=== PATIENT | male | born 1960 | race Caucasian/White ===

== ENCOUNTER 2025-02-11 12:04 | Emergency (ER) | payer MEDICARE, SELFPAY ==
[2025-02-11] VITALS (32 sets, daily range): BP systolic 84–146; BP diastolic 57–85; PULSE 55–92; TEMP 36.7; O2SAT 94–100; BMI 24.1
--- NOTE | 2025-02-11 12:10 | ECG_ITS ---
[facility] Test Date: 2025-02-11 Pat Name: DAGO CRESPO Department: Room: - Gender: Male It Teacher: : 1960 Requested By: JULIAN ROWLEY Order Number: [id number] Reading MD: SARAH SKY M.D. Measurements Intervals Reliance Rate: 63 P: 54 NC: 174 QRS: -1 QRSD: 94 T: 74 QT: 388 QTc: 395 Interpretive Statements 1100 Sinus rhythm 4068 Nonspecific Twave abnormality 9130 borderline ECG Compared to ECG 03/03/2022 14:07:00 No significant changes Electronically Signed On 02-11-2025 18:25:54 EDT by SARAH SKY M.D.
--- OUTSIDE RECORDS SUMMARY | 2025-02-11 12:11 | XMS_ITS | Encounter Summary ---
Author Organization [facility] Address [address] [place] [address] Care Team Providers Care Frame Expander Name Role Phone Cassidy Mcclure MD Unavailable Cassidy Mcclure MD Primary Care Provider [phone] Jennifer Bermeo RN Unavailable [phone] Cathy Parr LPN Unavailable Encounter Details Date Type Department Care Team ([facility] st Contact Info) Description 09/11/2024 Abstract [facility] [place] [facility] 112 [facility] 110 [place] [id number] Cassidy Mcclure MD 112 [facility] 110 [place] [address] Social History Tobacco Use Types Packs/Day Years Used Date Smoking Tobacco: Former Cigarettes Q uit: 06/14/2018 Smokeless Tobacco: Never Alcohol Use Standard Drinks/Week Comments Not Currently 0 (1 standard drink = 0.6 oz pur e alcohol) B1300 Health Literacy Answer Date Recor ded How often do you need to hav e someone help you when you read instructions, pamphlets, or other written material from your doctor or pharmacy? Rarely 04/18/2024 Humiliation, Afraid, Rape, and Kick questionnair e Answer Date Recorded Within the last year, have y ou been afraid of your partner or ex-partner? No 04/18/2024 Within the last year, have y ou been humiliated or emotionally abused in other ways by your partner or ex-partner? No Within the last year, have y ou been kicked, hit, slapped, or otherwise physically hurt by your partner or ex-partner? No 04/18/2024 Within the last year, have y ou been raped or forced to have any kind of sexual activity by your partner or ex-partner? No 04/18/2024 Social Connection and Isolat ion Panel [NHANES] Answer Date Recorded In a typical week, how many times do you talk on the phone with family, friends, or neighbors? More than three times a week 03/29/2023 How often do you get togethe r with friends or relatives? More than three times a week 03/29/2023 How often do you attend chur ch or anabaptism services? Never 03/29/2023 Do you belong to any clubs o r organizations such as adventist groups, unions, fraternal or athletic groups, or school groups? No 03/29/2023 How often do you attend meet ings of the clubs or organizations you belong to? Never 03/29/2023 Are you , , di vorced, , never , or living with a partner? 03/29/2023 AUDIT-C Answer Date Recorded Q1: How often do you have a drink containing alcohol? Never 03/29/2023 Q2: How many drinks containi ng alcohol do you have on a typical day when you are drinking? Patient does not drink Q3: How often do you have si x or more drinks on one occasion? Never 03/29/2023 Overall Financial Resource Strain (CARDIA) Answe r Date Recorded How hard is it for you to pa y for the very basics like food, housing, medical care, and heating? Somewhat hard 03/29/2023 PHQ-2 Answer Date Recorded Patient Health Questionnaire-2 Score 0 09/10/2024 [facility] - Occupational Stress Questionnaire Answer Date Recorded Do you feel stress - tense, restless, nervous, or anxious, or unable to sleep at night because your mind is troubled all the time - these days? Not at all 03/29/2023 Exercise Vital Sign Answer Date Recorde d On average, how many days pe r week do you engage in moderate to strenuous exercise (like a brisk walk)? 7 days 03/29/2023 On average, how many minutes do you engage in exercise at this level? 60 min 03/29/2023 Hunger Vital Sign Answer Date Recorded Within the past 12 months, y ou worried that your food would run out before you got the money to buy more. Sometimes true Within the past 12 months, t he food you bought just didn't last and you didn't have money to get more. Sometimes true PRAPARE - Transportation Answer Date Re corded In the past 12 months, has l ack of transportation kept you from medical appointments or from getting medications? No 03/11 In the past 12 months, has l ack of transportation kept you from meetings, work, or from getting things needed for daily living? No 03/29/2023 Housing Stability Vital Sign Answer Steven e Recorded In the last 12 months, was t here a time when you were not able to pay the mortgage or rent on time? No 03/29/2023 In the last 12 months, how many places have you lived? 1 03/29/2023 In the last 12 months, was t here a time when you did not have a steady place to sleep or slept in a retirement (including now)? No 03/29/2023 Sex and Gender Information Value Date Recorded Sex Assigned at Not on file Legal Sex Male 6:48 PM EDT Gender Identity Not on file Sexual Orientation Not on file documented as of this encounter Plan of Treatment Upcoming Encounters Date Type Department Care Team (Late st Contact Info) Description 03/14/2025 1:00 PM EDT Office Visit [facility] [place] [facility] [address] [facility] 110 [place] [id number] Cassidy Mcclure MD [address] [facility] 110 [place] [address] 05/27/2025 1:00 PM EST Office Visit [facility] [place] [facility] [address] [facility] 110 [place] [phone] Cassidy Mcclure MD [address] [facility] 110 [place] [address] documented as of this encounter Visit Diagnoses Not on filedocumented in this encounter Additional Health Concerns Assessment Noted Time PHQ-9 Depression Total Score: 0 05/14/20 24 12:00 PM EDT documented as of this encounter Care Teams Frame Expander Relationship Specialty Start Date End Date Cassidy Mcclure MD [address] [facility] 110 [place] [address] PCP - Sb GALLARDO 07/11/21 Cassiyd Mcclure MD [address] [facility] 110 [place] [address] PCP - General Family Medicine 12/27/22 Jennifer Bermeo, RN [address] [place] [address] Clinical Advocate Family Medicine 08/17/24 09/28/24 Cathy Parr LPN [address] [facility] 110 [place] [address] 09/28/24 documented as of this encounter
--- OUTSIDE RECORDS SUMMARY | 2025-02-11 12:11 | XMS_ITS | Encounter Summary ---
Author Organization [facility] Address [address] [facility] [place] [address] Care Team Providers Care Lime Kiln Worker Name Role Phone Cassidy Mcclure MD Unavailable Cassidy Mcclure MD Primary Care Provider [phone] Jennifer Bermeo RN Unavailable [phone] Cathy Parr LPN Unavailable Encounter Details Date Type Department Care Team ([facility] st Contact Info) Description 11/24/2023 Abstract [facility] [place] [facility] 112 [facility] 110 [place] [phone] Cassidy Mcclure MD 112 [facility] 110 [place] [address] Social History Tobacco Use Types Packs/Day Years Used Date Smoking Tobacco: Former Cigarettes Q uit: 06/14/2018 Smokeless Tobacco: Never Alcohol Use Standard Drinks/Week Comments Not Currently 0 (1 standard drink = 0.6 oz pur e alcohol) Humiliation, Afraid, Rape, and Kick questionnair e Answer Date Recorded Within the last year, have y ou been afraid of your partner or ex-partner? No 03/29/2023 Within the last year, have y ou been humiliated or emotionally abused in other ways by your partner or ex-partner? No Within the last year, have y ou been kicked, hit, slapped, or otherwise physically hurt by your partner or ex-partner? No 03/29/2023 Within the last year, have y ou been raped or forced to have any kind of sexual activity by your partner or ex-partner? No 03/29/2023 Social Connection and Isolat ion Panel [NHANES] Answer Date Recorded In a typical week, how many times do you talk on the phone with family, friends, or neighbors? More than three times a week 03/29/2023 How often do you get togethe r with friends or relatives? More than three times a week 03/29/2023 How often do you attend chur ch or moravian services? Never 03/29/2023 Do you belong to any clubs o r organizations such as sabianism groups, unions, fraternal or athletic groups, or [...] Date Recorded Patient Health Questionnaire-2 Score 0 11/22/2023 [facility] - Occupational Stress [...] place to sleep or slept in a group home (including now)? No 03/29/2023 Sex and Gender Information Value Date Recorded Sex Assigned at Not on file Legal Sex Male 6:48 PM EDT Gender Identity Not on file Sexual Orientation Not on file documented as of this encounter Plan of Treatment Upcoming Encounters Date Type Department Care Team (Late st Contact Info) Description 03/14/2025 1:00 PM EDT Office Visit [facility] [place] [facility] [address] [facility] [place] [address] [place] [phone] Cassidy Mcclure MD [address] [facility] [address] [place] [address] 05/27/2025 1:00 PM EST Office Visit [facility] [place] [facility] [address] [place] [address] [place] [address] Cassidy Mcclure MD [address] [place] [address] [place] [address] documented as of this encounter Visit Diagnoses Not on filedocumented in this encounter Additional Health Concerns Assessment Noted Time PHQ-9 Depression Total Score: 0 11/22/19 24 12:00 PM EDT documented as of this encounter Care Teams Lime Kiln Worker Relationship Specialty Start Date End Date Cassidy Mcclure MD [address] [place] [address] [place] [address] PCP - Sb GALLARDO 07/11/21 Cassidy Mcclure MD [address] [place] 110 [place], [place] [phone] PCP - General Family Medicine 12/27/22 Jennifer Bermeo, MARILYN [address] [place] [address] Clinical Advocate Family Medicine 08/17/24 09/28/24 Cathy Parr LPN [address] [place] [address] [place] [address] 09/28/24 documented as of this encounter
--- OUTSIDE RECORDS SUMMARY | 2025-02-11 12:11 | XMS_ITS | Encounter Summary ---
Author Organization [facility] Address [address] [place] [address] Care Team Providers Care Instrument Repair Technician Name Role Phone Cassidy Mcclure MD Unavailable Cassidy Mcclure MD Primary Care Provider [phone] Jennifer Bermeo RN Unavailable [phone] Cathy Parr LPN Unavailable Encounter Details Date Type Department Care Team (Late st Contact Info) Description 01/25/2024 Clinisync Result Encounter [facility] External Department Unsolicited Provider, Generic External Data Social History Tobacco Use Types Packs/Day Years [...] often do you attend chur ch or restorationism services? Never 03/29/2023 Do you belong to any clubs o r organizations such as holiness groups, unions, fraternal or athletic groups, or [...] Recorded Patient Health Questionnaire-2 Score 0 11/22/2023 [facility] - Occupational Stress Questionnaire Answer Date Recorded [...] Visit [facility] [place] [facility] [address] [facility] 110 [place] [address] Cassidy Mcclure MD [address] [place] [address] [place] [address] 05/27/2025 1:00 PM EST Office Visit [facility] [place] [facility] [address] [place] [address] [place] [address] Cassidy Mcclure MD [address] [facility] 110 [place] [address] documented as of this encounter Procedures Procedure Name Priority Date/Time Associated Diagnosis Comments CT CHEST W IV CONTRAST 01/25/2024 10:47 AM EDT documented in this encounter Results * CT chest w IV contrast (01/25/2024 10:47 AM EDT) Anatomical Region Laterality Modality Body, Chest Computed Tomogra phy 01/25/2024 10:4 7 AM EDT Narrative 01/26/2024 8:55 AM EDT * * *Final Report* * * DATE OF EXAM: Jan 25 2024 10:47AM [facility] 0539 - CT CHEST W IVCON / PROCEDURE REASON: Malignant neoplasm of unspecified part of unspecified bronchus or lung (HCC) * * * * Physician Interpretation * * * * RESULT: EXAMINATION: CHEST CT WITH CONTRAST CLINICAL HISTORY: Malignant neoplasm of unspecified part of unspecified bronchus or lung (HCC) Technique: Spiral CT acquisition of the chest from the thoracic inlet to the upper abdomen following IV contrast. MQ: CTCWR_5 Contrast: 50 mL Omnip[address] Dose-Length Product: 262 mGy*cm CT Dose Reduction Employed: Automated exposure control (AEC) Comparison: 07/20/2023 RESULT: Lines, tubes, and devices: None. Lung parenchyma and airways: Trachea and central airways are patent. Unchanged radiation fibrosis and treated left upper lobe mass. Morphology and appears unchanged since prior. No new suspicious appearing pulmonary nodules. Scattered calcified granulomas. Pleural space: No pleural effusion or pneumothorax. Lower neck, lymph nodes, and mediastinum: No axillary, supraclavicular, mediastinal or hilar lymphadenopathy by CT size criteria. Heart, pericardium, and thoracic vessels: The heart is normal in size. No pericardial effusion. The thoracic aorta and main pulmonary artery are normal in caliber. Atherosclerotic calcifications of the thoracic aorta and coronary arteries. Bones/Soft Tissues: Sebaceous cyst in the posterior right chest wall. Degenerative changes in thoracic spine. No aggressive osseous lesions. Upper abdomen: Unchanged 7 mm hypervascular structure in segment 6 likely benign. Vegetable Worker (topogram) images: Unremarkable. IMPRESSION: Unchanged appearance of the chest since 07/20/2023. No developing metastatic disease in the chest. Transcribe Date/Time: Jan 26 2024 8:45A Dictated by: JUANY ABDUL MD This examination was interpreted and the report reviewed and electronically signed by: JUANY ABDUL MD on Jan 26 2024 8:53AM EST Thank you for allowing us to participate in the care of your patient. Should there be any questions regarding this interpretation, please call [phone]. If you are unable to reach us at the number above, please feel free to contact [facility] at [phone]. [id number]^[email or web address]^ACN Procedure Note Radiology, Radiologist, - 01/26/2024 * * *Final Report* * * DATE OF EXAM: Jan 25 2024 10:47AM [facility] 0539 - CT CHEST W IVCON / PROCEDURE REASON: Malignant neoplasm of unspecified part of unspecified bronchus or lung (HCC) * * * * Physician Interpretation * * * * RESULT: EXAMINATION: CHEST CT WITH CONTRAST CLINICAL HISTORY: Malignant neoplasm of unspecified part of unspecified bronchus or lung (HCC) Technique: Spiral CT acquisition of the chest from the thoracic inlet to the upper abdomen following IV contrast. MQ: CTCWR_5 Contrast: 50 mL Omnipaque [address] Dose-Length Product: 262 mGy*cm CT Dose Reduction Employed: Automated exposure control (AEC) Comparison: 07/20/2023 RESULT: Lines, tubes, and devices: None. Lung parenchyma and airways: Trachea and central airways are patent. Unchanged radiation fibrosis and treated left upper lobe mass. Morphology and appears unchanged since prior. No new suspicious appearing pulmonary nodules. Scattered calcified granulomas. Pleural space: No pleural effusion or pneumothorax. Lower neck, lymph nodes, and mediastinum: No axillary, supraclavicular, mediastinal or hilar lymphadenopathy by CT size criteria. Heart, pericardium, and thoracic vessels: The heart is normal in size. No pericardial effusion. The thoracic aorta and main pulmonary artery are normal in caliber. Atherosclerotic calcifications of the thoracic aorta and coronary arteries. Bones/Soft Tissues: Sebaceous cyst in the posterior right chest wall. Degenerative changes in thoracic spine. No aggressive osseous lesions. Upper abdomen: Unchanged 7 mm hypervascular structure in segment 6 likely benign. Vegetable Worker (topogram) images: Unremarkable. IMPRESSION: Unchanged appearance of the chest since 07/20/2023. No developing metastatic disease in the chest. Transcribe Date/Time: Jan 26 2024 8:45A Dictated by: JUANY ABDUL MD This examination was interpreted and the report reviewed and electronically signed by: JUANY ABDUL MD on Jan 26 2024 8:53AM EST Thank you for allowing us to participate in the care of your patient. Should there be any questions regarding this interpretation, please call [phone]. If you are unable to reach us at the number above, please feel free to contact [facility] at [phone]. [id number]^[email or web address]^ACN us Generic External Data Provider IMG CT PROCEDURES Final Result documented in this encounter Visit Diagnoses Not on filedocumented in this encounter Additional Health Concerns Assessment Noted Time PHQ-9 Depression Total Score: 0 11/22/19 24 12:00 PM EDT documented as of this encounter Care Teams Instrument Repair Technician Relationship Specialty Start Date End Date Cassidy Mcclure MD [address] [facility] 110 [place] [address] PCP - Sb GALLARDO 07/11/21 Cassidy Mcclure MD [address] [facility] 110 [place] [address] PCP - General Family Medicine 12/27/22 Jennifer Bermeo, MARILYN [address] [place] [address] Clinical Advocate Family Medicine 08/17/24 09/28/24 Cathy Parr LPN [address] [facility] 110 [place] [address] 09/28/24 documented as of this encounter
--- OUTSIDE RECORDS SUMMARY | 2025-02-11 12:11 | XMS_ITS | Encounter Summary ---
Author Organization [facility] Address [address] [facility] [place] [address] Care Team Providers Care Senior Quality Assurance Engineer Name Role Phone Cassidy Mcclure MD Unavailable Cassidy Mccluer MD Primary Care Provider [phone] Jennifer Bermeo RN Unavailable [phone] Cathy Parr LPN Unavailable Encounter Details Date Type Department Care Team ([facility] st Contact Info) Description 08/03/2023 Abstract [facility] [place] [facility] 112 [facility] 110 [place] [phone] Cassidy Mcclure MD 112 [facility] 110 [place] [address] Social History Tobacco Use Types Packs/Day Years [...] often do you attend chur ch or samaritan services? Never 03/29/2023 Do you belong to any clubs o r organizations such as lutheran groups, unions, fraternal or athletic groups, or [...] medical care, and heating? Somewhat hard 03/29/2023 [facility] - Occupational Stress [...] place to sleep or slept in a correction (including now)? No 03/29/2023 Sex and Gender Information Value Date Recorded Sex Assigned at Not on file Legal Sex Male 6:48 PM EDT Gender Identity Not on file Sexual Orientation Not on file documented as of this encounter Plan of Treatment Upcoming Encounters Date Type Department Care Team (Late st Contact Info) Description 03/14/2025 1:00 PM EDT [facility] [address] [place] [address] [place] [address] Cassidy Mcclure MD [address] [place] [address] [place] [address] 05/27/2025 1:00 PM EST Office Visit [facility] [place] [facility] [address] [place] [address] [place] [address] Cassidy Mcclure MD [address] [place] [address] [place] [address] documented as of this encounter Visit Diagnoses Not on filedocumented in this encounter Care Teams Senior Quality Assurance Engineer Relationship Specialty Start Date End Date Cassidy Mcclure MD [address] [place] [address] [place] [address] PCP - Sb GALLARDO 07/11/21 Cassidy Mcclure MD [address] [place] [address] [place] [address] PCP - General Family Medicine 12/27/22 Jennifer Bermeo, MARILYN [address] [place] [address] Clinical Advocate Family Medicine 08/17/24 09/28/24 Cathy Parr LPN [address] [facility] 110 [place] [address] 09/28/24 documented as of this encounter
--- OUTSIDE RECORDS SUMMARY | 2025-02-11 12:11 | XMS_ITS | Encounter Summary ---
Author Organization [facility] Address [address] [facility] [place] [address] Care Team Providers Care Theatre Professor Name Role Phone Cassidy Mcclure MD Unavailable Cassidy Mcclure MD Primary Care Provider Jennifer Bermeo RN Unavailable [phone] Cathy Parr LPN Unavailable Encounter Details Date Type Department Care Team (Late Contact Info) Description 01/13/2023 Clinisync Result Encounter [facility] External Department Unsolicited aCssidy Mcclure MD [address] [facility] 110 [place] [address] Social History Tobacco Use Types Packs/Day Years Used Date Smoking Tobacco: Former Cigarettes Q uit: 06/14/2018 Smokeless Tobacco: Never Sex and Gender Information Value Date Recorded Sex Assigned at Not on file Legal Sex Male 6:48 PM EDT Gender Identity Not on file Sexual Orientation Not on file documented as of this encounter Plan of Treatment Upcoming Encounters Date Type Department Care Team ([facility] Contact Info) Description 03/14/2025 1:00 PM EDT Office Visit [facility] [place] [facility] [address] [facility] 110 [place] [id number] Cassidy Mcclure MD [address] [facility] 110 [place] [address] 05/27/2025 1:00 PM EST Office Visit [facility] [place] [facility] [address] [facility] 110 [place] [phone] Cassidy Mcclure MD [address] [facility] 110 [place], [place] [id number] documented as of this encounter Procedures Procedure Name Priority Date/Time Associated Diagnosis Comments CT CHEST W IV CONTRAST 01/13/2023 11:17 AM EDT documented in this encounter Results * CT chest w IV contrast (01/13/2023 11:17 AM EDT) Anatomical Region Laterality Modality Body, Chest Computed Tomogra phy 01/13/2023 11:1 7 AM EDT Narrative 01/13/2023 11:45 AM EDT * * *Final Report* * * DATE OF EXAM: Jan 13 2023 11:17AM [facility] 0539 - CT CHEST W IVCON / PROCEDURE REASON: Malignant neoplasm of unspecified part of unspecified bronchus or lung (HCC) * * * * Physician Interpretation * * * * RESULT: EXAMINATION: CHEST CT WITH CONTRAST CLINICAL HISTORY: Lung carcinoma Technique: Spiral CT acquisition of the chest from the thoracic inlet to the upper abdomen following IV contrast. MQ: CTCW_6 Contrast: 50 mL Omnipaque [address] Radiation dose: Integrated Dose-length product (DLP) for this visit = 237 mGy*cm CT Dose Reduction Employed: Automated exposure control (AEC) Comparison: CT chest 09/01/2022 RESULT: Limitations: None. Lines, tubes, and devices: None. Lung parenchyma , airways, and pleural space: Consolidative opacities within the left upper lobe and to a lesser degree left lower lobe extending to the perihilar region are again appreciated, unchanged, likely on the basis of prior radiation therapy. No new consolidative process or pleural effusion. The trachea and major airways appear patent. Minimal biapical pleural scarring is appreciated. Mild centrilobular emphysematous changes are again noted. Scattered calcified granulomata are appreciated. Punctate, less than 3 mm left upper lobe noncalcified nodule, image 29, series 4 is not clearly identified on the prior study. Lower neck, lymph nodes, and mediastinum: The visualized thyroid gland is stable. No substantial supraclavicular or axillary lymphadenopathy is identified. Scattered subcentimeter mediastinal lymph nodes are again appreciated, stable. Mild soft tissue prominence at the right hilum measuring 1.3 x 1.1 cm, stable. Soft tissue prominence at the left hilum, contiguous with left perihilar opacities, unchanged. Heart, pericardium, and thoracic vessels: The thoracic aorta is normal in caliber. No substantial pericardial effusion is appreciated. Coronary artery calcification is identified. Bones/Soft Tissues: Degenerative change involving the thoracic spine. No osseous destructive process. Upper Abdomen: Limited images through the upper abdomen are stable. Information Systems Security Developer (topogram) images: No additional findings. IMPRESSION: 1. Left perihilar consolidative opacities, stable from prior study of 09/01/2022, likely on the basis of prior radiation therapy. 2. Punctate, less than 3 mm left upper lobe nodule, not clearly identified on the prior study. Correlation with continued follow-up examinations is recommended. 3. Mild soft tissue prominence at the right hilum, unchanged. Transcribe Date/Time: Jan 13 2023 11:18A Dictated by: MARÍA ESCOBEDO MD This examination was interpreted and the report reviewed and electronically signed by: MARÍA ESCOBEDO MD on Jan 13 2023 11:43AM EST Thank you for allowing us to participate in the care of your patient. Should there be any questions regarding this interpretation, please call [phone]. If you are unable to reach us at the number above, please feel free to contact [facility] at [phone]. [id number]^[email or web address]^ACN Procedure Note Radiology, Radiologist, - 01/13/2023 * * *Final Report* * * DATE OF EXAM: Jan 13 2023 11:17AM [facility] 0539 - CT CHEST W IVCON / PROCEDURE REASON: Malignant neoplasm of unspecified part of unspecified bronchus or lung (HCC) * * * * Physician Interpretation * * * * RESULT: EXAMINATION: CHEST CT WITH CONTRAST CLINICAL HISTORY: Lung carcinoma Technique: Spiral CT acquisition of the chest from the thoracic inlet to the upper abdomen following IV contrast. MQ: CTCW_6 Contrast: 50 mL Omnipaque [address] Radiation dose: Integrated Dose-length product (DLP) for this visit = 237 mGy*cm CT Dose Reduction Employed: Automated exposure control (AEC) Comparison: CT chest 09/01/2022 RESULT: Limitations: None. Lines, tubes, and devices: None. Lung parenchyma , airways, and pleural space: Consolidative opacities within the left upper lobe and to a lesser degree left lower lobe extending to the perihilar region are again appreciated, unchanged, likely on the basis of prior radiation therapy. No new consolidative process or pleural effusion. The trachea and major airways appear patent. Minimal biapical pleural scarring is appreciated. Mild centrilobular emphysematous changes are again noted. Scattered calcified granulomata are appreciated. Punctate, less than 3 mm left upper lobe noncalcified nodule, image 29, series 4 is not clearly identified on the prior study. Lower neck, lymph nodes, and mediastinum: The visualized thyroid gland is stable. No substantial supraclavicular or axillary lymphadenopathy is identified. Scattered subcentimeter mediastinal lymph nodes are again appreciated, stable. Mild soft tissue prominence at the right hilum measuring 1.3 x 1.1 cm, stable. Soft tissue prominence at the left hilum, contiguous with left perihilar opacities, unchanged. Heart, pericardium, and thoracic vessels: The thoracic aorta is normal in caliber. No substantial pericardial effusion is appreciated. Coronary artery calcification is identified. Bones/Soft Tissues: Degenerative change involving the thoracic spine. No osseous destructive process. Upper Abdomen: Limited images through the upper abdomen are stable. Information Systems Security Developer (topogram) images: No additional findings. IMPRESSION: 1. Left perihilar consolidative opacities, stable from prior study of 09/01/2022, likely on the basis of prior radiation therapy. 2. Punctate, less than 3 mm left upper lobe nodule, not clearly identified on the prior study. Correlation with continued follow-up examinations is recommended. 3. Mild soft tissue prominence at the right hilum, unchanged. Transcribe Date/Time: Jan 13 2023 11:18A Dictated by: MARÍA ESCOBEDO MD This examination was interpreted and the report reviewed and electronically signed by: MARÍA ESCOBEDO MD on Jan 13 2023 11:43AM EST Thank you for allowing us to participate in the care of your patient. Should there be any questions regarding this interpretation, please call [phone]. If you are unable to reach us at the number above, please feel free to contact [facility] at [phone]. [id number]^[email or web address]^SI^ACN Cassidy Mcclure MD IMG CT PROCEDURES Final Result documented in this encounter Visit Diagnoses Not on filedocumented in this encounter Care Teams Theatre Professor Relationship Specialty Start Date End Date Cassidy Mcclure MD [address] [facility] 110 [place] [address] PCP - Sb GALLARDO 07/11/21 Cassidy Mcclure MD [address] [facility] 110 [place] [address] PCP - General Family Medicine 12/27/22 Jennifer Bermeo, MARILYN [address] [place] [address] Clinical Advocate Family Medicine 08/17/24 09/28/24 Cathy Parr LPN [address] [facility] 110 [place] [address] 09/28/24 documented as of this encounter
--- OUTSIDE RECORDS SUMMARY | 2025-02-11 12:11 | XMS_ITS | Encounter Summary ---
Author Organization [facility] Address [address] [facility] [place] [address] Care Team Providers Care Reference Librarian Name Role Phone Cassidy Mcclure MD Unavailable Cassidy Mcclure MD Primary Care Provider [phone] Jennifer Bermeo RN Unavailable [phone] Cathy Parr LPN Unavailable Encounter Details Date Type Department Care Team (Late st Contact Info) Description 02/02/2024 Abstract [facility] [place] [facility] 112 [facility] 110 [place] [phone] Cassidy Mcclure MD 112 [facility] 110 [place] [address] Social History Tobacco Use Types Packs/Day Years [...] often do you attend chur ch or spiritism services? Never 03/29/2023 Do you belong to any clubs o r organizations such as yarsanism groups, unions, fraternal or athletic groups, or [...] Recorded Patient Health Questionnaire-2 Score 0 11/22/2023 [facility] - Occupational [...] place to sleep or slept in a half-way (including now)? No 03/29/2023 Sex and Gender [...] [address] [facility] 110 [place] [phone] Cassidy Mcclure MD [address] [facility] 110 [place] [address] 05/27/2025 1:00 PM EST Office Visit [facility] [place] [facility] [address] [facility] [place] [address] [place] [address] Cassidy Mcclure MD [address] [facility] 110 [place] [address] documented as of this encounter Visit Diagnoses Not on filedocumented in this encounter Additional Health Concerns Assessment Noted Time PHQ-9 Depression Total Score: 0 11/22/19 24 12:00 PM EDT documented as of this encounter Care Teams Reference Librarian Relationship Specialty Start Date End Date Cassidy Mcclure MD [address] [facility] 110 [place] [address] PCP - Sb GALLARDO 07/11/21 Cassidy Mcclure MD [address] [place] [facility] 110 [place], [place] [address] PCP - General Family Medicine 12/27/22 Jennifer Bermeo, MARILYN [address] [place] [address] Clinical Advocate Family Medicine 08/17/24 09/28/24 Cathy Parr LPN [address] [place] [facility] 110 [place] [address] 09/28/24 documented as of this encounter
--- OUTSIDE RECORDS SUMMARY | 2025-02-11 12:11 | XMS_ITS | Encounter Summary ---
Author Organization [facility] Address [address] [place] [address] Care Team Providers Care Tester Printed Circuit Boards Name Role Phone Cassidy Mcclure MD Unavailable Cassidy Mcclure MD Primary Care Provider [phone] Jennifer Bermeo RN Unavailable [phone] Cathy Parr LPN Unavailable Encounter Details Date Type Department Care Team (Late st Contact Info) Description 07/25/2024 Clinisync Result Encounter [facility] External Department Unsolicited [...] often do you attend chur ch or zoroastrian services? Never 03/29/2023 Do you belong to any clubs o r organizations such as episcopalian groups, unions, fraternal or athletic groups, or [...] Recorded Patient Health Questionnaire-2 Score 0 11/22/2023 [facility] - Occupational Stress Questionnaire Answer Date [...] 1:00 PM EDT [facility] [place] [facility] [address] [place] [address] [place] [address] Cassidy Mcclure MD [address] [place] [facility] [address] [place] [address] 05/27/2025 1:00 PM EST Office Visit [facility] [place] [facility] [address] [place] [address] [place] [address] Cassidy Mcclure MD [address] [place] [address] [place] [address] documented as of this encounter Procedures Procedure Name Priority Date/Time Associated Diagnosis Comments CT CHEST W IV CONTRAST 07/25/2024 9:15 AM EST documented in this encounter Results * CT chest w IV contrast (07/25/2024 9:15 AM EST) Anatomical Region Laterality Modality Body, Chest Computed Tomogra phy 07/25/2024 9:15 AM EST Narrative 07/25/2024 10:44 AM EST * * *Final Report* * * DATE OF EXAM: Jul 25 2024 9:15AM [facility] 0539 - CT CHEST W IVCON / PROCEDURE REASON: Malignant neoplasm of unspecified part of unspecified bronchus or lung (HCC) * * * * Physician Interpretation * * * * RESULT: EXAMINATION: CHEST CT WITH CONTRAST CLINICAL HISTORY: Non-small cell lung cancer (NSCLC), monitor Technique: Spiral CT acquisition of the chest from the thoracic inlet to the upper abdomen following IV contrast. MQ: CTCW_6 Contrast: 50 mL Omnipaque [address] Dose-Length Product: 244 mGy*cm CT Dose Reduction Employed: Automated exposure control (AEC) Comparison: 01/25/24 RESULT: Limitations: None. Lines, tubes, and devices: None. Lung parenchyma and pleura: Consolidative opacities are noted throughout the left lung, most likely a combination of post radiation change and other infectious/inflammatory etiologies, stable. Mild emphysematous changes of the lungs. Calcified granulomas are noted. No new airspace opacities. No pleural effusion. Thoracic inlet, heart, and mediastinum: No mediastinal lymphadenopathy. The thoracic aorta and main pulmonary artery are normal in caliber. The cardiac chambers are normal in size. Atherosclerotic coronary artery calcifications are noted. No pericardial effusion or thickening. Bones and soft tissues: No new osseous abnormalities. Subcutaneous cystic focus in the right lower chest wall (3: 156) most likely a sebaceous cyst, stable. Upper abdomen: Left adrenal gland is incompletely visualized. No evidence of an adrenal mass and the visualized [id number]. Co Pilot (topogram) images: No additional findings. IMPRESSION: 1. No interval change since 01/25/24. 2. Left perihilar postradiation change, stable. Transcribe Date/Time: Jul 25 2024 10:29A Dictated by: BRITTANEY LEE MD This examination was interpreted and the report reviewed and electronically signed by: BRITTANEY LEE MD on Jul 25 2024 10:41AM EST Thank you for allowing us to participate in the care of your patient. Should there be any questions regarding this interpretation, please call [phone]. If you are unable to reach us at the number above, please feel free to contact [facility] at [phone]. [id number]^[email or web address]^ACN Procedure Note Radiology, Radiologist, - 07/25/2024 * * *Final Report* * * DATE OF EXAM: Jul 25 2024 9:15AM [facility] 0539 - CT CHEST W IVCON / PROCEDURE REASON: Malignant neoplasm of unspecified part of unspecified bronchus or lung (HCC) * * * * Physician Interpretation * * * * RESULT: EXAMINATION: CHEST CT WITH CONTRAST CLINICAL HISTORY: Non-small cell lung cancer (NSCLC), monitor Technique: Spiral CT acquisition of the chest from the thoracic inlet to the upper abdomen following IV contrast. MQ: CTCW_6 Contrast: 50 mL Omnipaque [address] Dose-Length Product: 244 mGy*cm CT Dose Reduction Employed: Automated exposure control (AEC) Comparison: 01/25/24 RESULT: Limitations: None. Lines, tubes, and devices: None. Lung parenchyma and pleura: Consolidative opacities are noted throughout the left lung, most likely a combination of post radiation change and other infectious/inflammatory etiologies, stable. Mild emphysematous changes of the lungs. Calcified granulomas are noted. No new airspace opacities. No pleural effusion. Thoracic inlet, heart, and mediastinum: No mediastinal lymphadenopathy. The thoracic aorta and main pulmonary artery are normal in caliber. The cardiac chambers are normal in size. Atherosclerotic coronary artery calcifications are noted. No pericardial effusion or thickening. Bones and soft tissues: No new osseous abnormalities. Subcutaneous cystic focus in the right lower chest wall (3: 156) most likely a sebaceous cyst, stable. Upper abdomen: Left adrenal gland is incompletely visualized. No evidence of an adrenal mass and the visualized [id number]. Co Pilot (topogram) images: No additional findings. IMPRESSION: 1. No interval change since 01/25/24. 2. Left perihilar postradiation change, stable. Transcribe Date/Time: Jul 25 2024 10:29A Dictated by: BRITTANEY LEE MD This examination was interpreted and the report reviewed and electronically signed by: BRITTANEY LEE MD on Jul 25 2024 10:41AM EST Thank you for allowing us to participate in the care of your patient. Should there be any questions regarding this interpretation, please call [phone]. If you are unable to reach us at the number above, please feel free to contact [facility] at [phone]. [id number]^[email or web address]^SI^ACN us Generic External Data Provider IMG CT PROCEDURES Final Result documented in this encounter Visit Diagnoses Not on filedocumented in this encounter Additional Health Concerns Assessment Noted Time PHQ-9 Depression Total Score: 0 11/22/19 24 12:00 PM EDT documented as of this encounter Care Teams Tester Printed Circuit Boards Relationship Specialty Start Date End Date Cassidy Mcclure MD [address] [facility] 110 [place] [address] PCP - Sb GALLARDO 07/11/21 Cassidy Mcclure MD [address] [facility] 110 [place] [address] PCP - General Family Medicine 12/27/22 Jennifer Bermeo, RN [address] [place] [address] Clinical Advocate Family Medicine 08/17/24 09/28/24 Cathy Parr LPN [address] [facility] 110 [place] [address] 09/28/24 documented as of this encounter
--- OUTSIDE RECORDS SUMMARY | 2025-02-11 12:11 | XMS_ITS ---
Author Organization [facility] Address [address] [place] [address] Care Team Providers Care Lead Process Engineer Name Role Phone Cassidy Mcclure MD Unavailable Cassidy Mcclure MD Primary Care Provider [phone] Cathy Parr LPN Unavailable Chronic Care Management (CCM) Status:Enrolled (Active) Start date:11/25/2022 Enrollment date:11/25/2022 Overview 04/28/23, 11:39 AM - Shanikatuesday, ROBIN- Patient gives verbal consent to be enrolled in CCM Program and understands there could be a bill for this service. Case Team Name Relationship Phone Cathy Parr LPN(Responsible Staff) [phone] Continued Care and Services Coordination
--- OUTSIDE RECORDS SUMMARY | 2025-02-11 12:11 | XMS_ITS | Encounter Summary ---
Author Organization [facility] Address [address] [facility] [place] [address] Care Team Providers Care Service Desk Manager Name Role Phone Cassidy Mcclure MD Unavailable Cassidy Mcclure MD Primary Care Provider [phone] Jennifer Bermeo RN Unavailable [phone] Cathy Parr LPN Unavailable Encounter Details Date Type Department Care Team ([facility] st Contact Info) Description 11/23/2023 Abstract [facility] [place] [facility] 112 [facility] 110 [place] [phone] Cassidy Mcclure MD 112 [facility] 110 [place] [address] Social History Tobacco Use Types Packs/Day Years [...] often do you attend chur ch or pentecostalism services? Never 03/29/2023 Do you belong to any clubs o r organizations such as anabaptist groups, unions, fraternal or athletic groups, or [...] Recorded Patient Health Questionnaire-2 Score 0 11/22/2023 [facility] - Occupational [...] [address] [facility] [address] [place] [phone] Cassidy Mcclure MD [address] [place] [facility] 110 [place] [address] 05/27/2025 1:00 PM EST Office Visit [facility] [place] [facility] [address] [facility] [address] [place] [address] Cassidy Mcclure MD [address] [place] [facility] 110 [place] [address] documented as of this encounter Visit Diagnoses Not on filedocumented in this encounter Additional Health Concerns Assessment Noted Time PHQ-9 Depression Total Score: 0 11/22/19 24 12:00 PM EDT documented as of this encounter Care Teams Service Desk Manager Relationship Specialty Start Date End Date Cassidy Mcclure MD [address] [place] [facility] 110 [place] [address] PCP - Sb GALLARDO 07/11/21 Cassidy Mcclure MD [address] [place] 110 [place], [place] [id number] PCP - General Family Medicine 12/27/22 Jennifer Bermeo, MARILYN [address] [place] [address] Clinical Advocate Family Medicine 08/17/24 09/28/24 Cathy Parr LPN [address] [facility] 110 [place] [address] 09/28/24 documented as of this encounter
--- OUTSIDE RECORDS SUMMARY | 2025-02-11 12:11 | XMS_ITS | Encounter Summary ---
Author Organization [facility] Address [address] [facility] [place] [address] Care Team Providers Care Health And Physical Education Professor Name Role Phone Cassidy Mcclure MD Unavailable Cassidy Mcclure MD Primary Care Provider Jennifer Bermeo RN Unavailable Cathy Parr LPN Unavailable Encounter Details Date Type Department Care Team (Late Contact Info) Description 01/21/2023 Abstract [facility] [place] [address] [facility] 110 [place] [address] Cassidy Mcclure MD [address] [place] [facility] 110 [place] [address] Social History Tobacco Use Types Packs/Day Years Used Date Smoking Tobacco: Former Cigarettes Q uit: 06/14/2018 Smokeless Tobacco: Never Alcohol Use Standard Drinks/Week Comments Not Currently 0 (1 standard drink = 0.6 oz pur e alcohol) Sex and Gender Information Value Date Recorded Sex Assigned at Not on file Legal Sex Male 6:48 PM EDT Gender Identity Not on file Sexual Orientation Not on file documented as of this encounter Plan of Treatment Upcoming Encounters Date Type Department Care Team (Late Contact Info) Description 03/14/2025 1:00 PM EDT Office Visit [facility] [place] [facility] [address] [facility] [facility] [address] [place] [phone] Cassidy Mcclure MD [address] [place] 110 [place] [address] 05/27/2025 1:00 PM EST Office Visit [facility] [place] [facility] [address] [facility] [address] [place] [address] Cassidy Mcclure MD [address] [facility] 110 [place] [address] documented as of this encounter Visit Diagnoses Not on filedocumented in this encounter Care Teams Health And Physical Education Professor Relationship Specialty Start Date End Date Cassidy Mcclure MD [address] [facility] 110 [place] [address] PCP - Sb GALLARDO 07/11/21 Cassidy Mcclure MD [address] [facility] 110 [place] [address] PCP - General Family Medicine 12/27/22 Jennifer Bermeo, RN [address] [place] [address] Clinical Advocate Family Medicine 08/17/24 09/28/24 Cathy Parr LPN [address] [facility] 110 [place] [address] 09/28/24 documented as of this encounter
--- OUTSIDE RECORDS SUMMARY | 2025-02-11 12:12 | XMS_ITS | Encounter Summary ---
Author Organization [facility] Address [address] [facility] [place] [address] Care Team Providers Care Geothermal Operations Manager Name Role Phone Cassidy Mcclure MD Unavailable Cassidy Mcclure MD Primary Care Provider [phone] Jennifer Bermeo RN Unavailable [phone] Cathy Parr LPN Unavailable Encounter Details Date Type Department Care Team (Late st Contact Info) Description 07/13/2023 Abstract [facility] [place] [facility] [address] [facility] 110 [place] [phone] Cassidy Mcclure MD 112 [facility] 110 [place] [address] Social History Tobacco Use Types Packs/Day Years [...] often do you attend chur ch or taoist services? Never 03/29/2023 Do you belong to any clubs o r organizations such as congregation groups, unions, fraternal or athletic groups, or [...] medical care, and heating? Somewhat hard 03/29/2023 [facility] - Occupational Stress [...] PM EDT [facility] [address] JOSE ALFREDO [address] [place] [address] Cassidy Mcclure MD [address] Jose Alfredo [address] [place] [address] 05/27/2025 1:00 PM EST Office Visit [facility] [place] [facility] [address] JOSE ALFREDO [address] [place] [address] Cassidy Mcclure MD [address] Jose Alfredo [address] [place] [address] documented as of this encounter Visit Diagnoses Not on filedocumented in this encounter Care Teams Geothermal Operations Manager Relationship Specialty Start Date End Date Cassidy Mcclure MD [address] Jose Alfredo [address] [place] [address] PCP - Sb GALLARDO 07/11/21 Cassidy Mcclure MD [address] Jose Alfredo [address] [place] [address] PCP - General Family Medicine 12/27/22 Jennifer Bermeo, MARILYN [address] [place] [address] Clinical Advocate Family Medicine 08/17/24 09/28/24 Cathy Parr LPN [address] [facility] 110 [place] [address] 09/28/24 documented as of this encounter
--- OUTSIDE RECORDS SUMMARY | 2025-02-11 12:12 | XMS_ITS | Clinical Summary ---
Author Organization [facility] Address [address] [place] [address] Care Team Providers Care Contract Forester Name Role Phone Cassidy Mcclure MD Unavailable Cassidy Mcclure MD Primary Care Provider Cathy Parr LPN Unavailable Allergies Active Allergy Reactions Criticality Noted Date Comments Trazodone 03/16/2018 Other Reaction(s): Other: See Comments, Unknown Headache Medications sildenafil (Viagra) 100 MG tablet Take 100 mg by mouth if needed for erectile dysfunctio n. Active levothyroxine (Synthroid, Levoxyl) 100 MCG tabletIndications:Hypo thyroidism, unspecified type TAKE 1 TABLET BY MOUTH ONCE A DAY 90 tablet 4 024 Active lisinopril 10 MG tabletIndications:Ruiz gn essential hypertension TAKE 1 TABLET BY MOUTH ONCE A DAY AT THE SAME TIME EACH DAY 100 tablet 3 024 Active rOPINIRole (Requip) 0.5 MG tabletIndications:Rest less legs TAKE 1 TABLET BY MOUTH IN THE MORNING, 1 TABLET AT NOON, 1 TABLET IN THE EVENING AND 1 TABLET BEFORE BEDTIME. 360 tablet 3 024 Active topiramate 50 MG tabletIndications:Cent rilobular emphysema (HCC) TAKE 1 TABLET BY MOUTH TWICE DAILY DIRECTED 200 tablet 4 025 Active Umeclidinium-Vilantero l (Anoro Ellipta) 62.5-25 MCG/ACT aerosol powderIndications:Muco purulent chronic bronchitis (HCC) Inhale 1 puff Daily 1 each 2 025 Active atorvastatin (Lipitor) 80 MG tabletIndications:Pure hypercholesterolemia Take 1 tablet (80 mg) by mouth 1 (one) time each day at the same time 90 tablet 3 025 2025 Active gabapentin (Neurontin) 400 MG capsuleIndications:Res tless legs Take 2 capsules (800 mg) by mouth in the morning and 2 capsules (800 mg) before bedtime. 360 capsule 3 Active omeprazole (PriLOSEC) [address] capsuleIndications:Gas troesophageal reflux disease, unspecified whether esophagitis present Take 1 capsule (40 mg) by mouth in the morning. Take before meals. 90 capsule 3 025 2025 Active celecoxib (CeleBREX) 200 MG capsuleIndications:Res tless legs,Neuralgia TAKE 1 CAPSULE BY MOUTH ONCE DAILY IN THE MORNING 90 capsule 1 Active folic acid (Folvite) 1 MG tabletIndications:Hype rtriglyceridemia TAKE 1 TABLET BY MOUTH ONCE DAILY DIRECTED 100 tablet 3 025 Active folic acid (Folvite) 1 MG tabletIndications:Hype rtriglyceridemia TAKE 1 TABLET BY MOUTH ONCE DAILY DIRECTED 100 tablet 4 024 2024 Discontinued atorvastatin (Lipitor) 80 MG tabletIndications:Pure hypercholesterolemia Take 1 tablet (80 mg) by mouth 1 (one) time each day at the same time 90 tablet 3 024 2024 Discontinued(R eorder) gabapentin (Neurontin) 400 MG capsuleIndications:Res tless legs Take 2 capsules (800 mg) by mouth in the morning and 2 capsules (800 mg) before bedtime. 360 capsule 3 024 2024 Discontinued(R eorder) omeprazole (PriLOSEC) [address] capsuleIndications:Gas troesophageal reflux disease, unspecified whether esophagitis present Take 1 capsule (40 mg) by mouth in the morning. Take before meals. 90 capsule 3 024 2024 Discontinued(R eorder) celecoxib (CeleBREX) 200 MG capsuleIndications:Res tless legs,Neuralgia TAKE 1 CAPSULE BY MOUTH ONCE DAILY IN THE MORNING 30 capsule 3 025 2024 Discontinued(R eorder) Active Problems Problem Noted Date Diagnosed Date Obesity, unspecified 09/10/2024 Pulmonary fibrosis, unspecified 09/10/2024 Assessment & Plan (09/10/2024 1:28 PM EST): From Radiation, no breathing issues Allergies 03/06/2024 Assessment & Plan (03/06/2024 2:24 PM EDT): I discussed with patient that while on prednisone, do not take any NSAIDs like Ibuprofen, Naprosyn, Alleve or motrin. Watch for any side effects like abdominal pain and nausea. Take the prednisone with food or milk. Prednisone may increase appetite. While on prednisone, watch for any sugar elevations. Watch for bacterial infections: Fever, Cough, SOB, Sputum Centrilobular emphysema 09/01/2023 Assessment & Plan (09/10/2024 1:20 PM EST): No breathing issues Secondhand smoke exposure 09/01/2023 History of tobacco use 09/01/2023 Malignant neoplasm of upper lobe, left bronchus or lung 09/01/2023 Assessment & Plan (09/10/2024 1:21 PM EST): In remission Seasonal affective disorder 09/01/2023 Assessment & Plan (09/01/2023 2:23 PM EST): Exercise and sunshine ED (erectile dysfunction) of non-organic origin 12/14/2022 Abnormal tomography of chest 12/14/2022 Adjustment disorder 12/14/2022 Blindness of one eye 12/14/2022 Overview (11/22/2023): Right Eye Claudication 12/14/2022 Gastroesophageal reflux disease 12/14/2022 Hypertriglyceridemia 12/14/2022 Assessment & Plan (09/10/2024 1:20 PM EST): Cotinue current meds Hypothyroidism 12/14/2022 Assessment & Plan (11/22/2024 2:04 PM EDT): This is a chronic medical condition that is stable since last assessment. No changes in treatment are suggested at this time. Continue Current meds. Assessment & Plan (09/10/2024 1:20 PM EST): This is a chronic medical condition that is stable since last assessment. No changes in treatment are suggested at this time. Continue Current meds. 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 No changes in treatment are suggested at this time. Continue Current meds. Malignant neoplasm of unspec ified part of left bronchus or lung 12/14/2022 Pure hypercholesterolemia 12/14/2022 Assessment & Plan (11/22/2024 2:03 PM EDT): This is a chronic medical condition that is stable since last assessment. No changes in treatment are suggested at this time. Continue Current meds. Restless legs 12/14/2022 Assessment & Plan (09/10/2024 1:19 PM EST): This is a chronic medical condition that is stable since last assessment. No changes in treatment are suggested at this time. Continue Current meds. Seasonal allergic rhinitis due to pollen 023 COPD (chronic obstructive pulmonary disease) Assessment & Plan (09/10/2024 1:19 PM EST): Today we discussed the possible complications of COPD, including increased risk of respiratory failure, hospitalization and . Your goal for your COPD management are maintain a healthy weight with a BMI of less than 26 and prevent future hospitalizations by using your medications as prescribed and avoiding environments with smoke exposure. We are working together to achieve these goals with the following plans increase activity levels, compliance of medications and a healthier diet. You have been given education handouts and a summary of your care plan. 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 Overview (09/01/2023): 08/02 seen by cta 07/29 from osh, 2x2.5mm at junction of r a1 with acom -ICA-ECA bypass 08/07/13 Alcohol abuse 12/08/2011 Overview (09/01/2023): Thiamine folate- IV ceased today and multivitamin, pt will continue on vitamins at home -he does not have any withdrawal symptoms today -continue to encourage no drinking when going home and that he cannot take Plavix while drinking because of a concern of falling and having a head trauma Benign essential hypertension 08/09/2011 Assessment & Plan (11/22/2024 2:03 PM EDT): Our specific goals, for your hypertension, is to keep your blood pressure less than 140/90, and the importance of weight control. We made recommendations on how to control your blood pressure, and minimize your risk of these copmplications. We also discussed your current barriers to a healthy living and importance of healthy diet and exercise. Prior to your visit today we have reviewed your chart and formed a plan to assist with providing you the best possible care. We reviewed the possible complications of hypertension including, stroke, heart failure and kidney impairment. In addition, we discussed your medications, the importance of taking them as prescribed. DASH diet handouts Assessment & Plan (09/01/2023 2:18 PM EST): Our specific goals, for your hypertension, is to keep your blood pressure less than 140/90, and the importance of weight control. We made recommendations on how to control your blood pressure, and minimize your risk of these copmplications. We also discussed your current barriers to a healthy living and importance of healthy diet and exercise. Prior to your visit today we have reviewed your chart and formed a plan to assist with providing you the best possible care. We reviewed the possible complications of hypertension including, stroke, heart failure and kidney impairment. In addition, we discussed your medications, the importance of taking them as prescribed. DASH diet handouts Assessment & Plan (02/28/2023 1:13 PM EDT): Our specific goals, for your hypertension, is to keep your blood pressure less than 140/90, and the importance of weight control. We made recommendations on how to control your blood pressure, and minimize your risk of these copmplications. We also discussed your current barriers to a healthy living and importance of healthy diet and exercise. Prior to your visit today we have reviewed your chart and formed a plan to assist with providing you the best possible care. We reviewed the possible complications of hypertension including, stroke, heart failure and kidney impairment. In addition, we discussed your medications, the importance of taking them as prescribed. DASH diet handouts Peripheral vascular disease, unspecified 012 Assessment & Plan (09/01/2023 2:20 PM EST): Had CVA Takes an aspirin and atorvastatin Resolved Problems Problem Noted Date Diagnosed Date Resolved Date Acute on chronic alteration in mental status 3 11/22/2023 Lung cancer 12/14/2022 11/22/2023 Assessment & Plan (09/01/2023 2:19 PM EST): Had follow up in July Still in remission Malignant neoplasm of hilus of lung 12/14/2022 11/22/2023 Assessment & Plan (02/28/2023 1:13 PM EDT): F/U with hem Onc Lung mass 03/05/2022 11/22/2023 Wheezing 03/05/2022 11/22/2023 Tobacco abuse 09/25/2013 11/22/2023 Allergic rhinitis 06/08/2011 11/22/2023 Encounters Date Type Department Care Team Description 01/30/2025 Refill [facility] [address] [facility] 110 [place] [address] Cassidy Mcclure MD Hypertriglyceridemia 01/24/2025 Patient Outreach [facility] [place] [address] Cathy ParrROBIN 01/23/2025 Refill [facility] [address] [facility] 110 [place] [address] Katherine Del Cid LPN Restless legs; Neuralgia 01/15/2025 Refill [facility] [address] [facility] 110 [place] [address] Katherine Del Cid LPN Pure hypercholesterolemia ; Restless legs; Gastroesophageal reflux disease, unspecified whether esophagitis present 11/28/2024 Telephone [facility] [address] [facility] 110 [place] [address] Cassidy Mcclure MD 11/22/2024 2:00 PM EDT Office Visit [facility] [address] [facility] 110 [place] [address] Cassidy Mcclure MD Pure hypercholesterolemia (Primary Dx); Benign essential hypertension ; Acquired hypothyroidism ; Mucopurulent chronic bronchitis (HCC) 11/22/2024 Travel from Last 3 Months Immunizations Immunization Administration Dates Next Due Influenza, High-dose Seasona l, Quadrivalent, Preservative Free 04/07/2018 Influenza, Unspecified 08/04/2013 Influenza, injectable, quadr ivalent, preservative free 04/13/2020,04/21/2019,03/31/2018,05/04,07/08/2015 Influenza, recombinant, quad rivalent, injectable, preservative free 04/27/2022,04/25/2021 Influenza, seasonal, injectable 06/28/2023 Influenza, seasonal, injecta ble, preservative free 06/28/2017 Pneumococcal Polysaccharide PPSV23 08/03/2013 Family History Medical History Relation Name Comments Cancer Father Relation Name Status Comments Father Mother Social History Tobacco Use Types Packs/Day Years Used Date Smoking Tobacco: Former Cigarettes Q uit: 06/14/2018 Smokeless Tobacco: Never Tobacco Cessation:Counseling Given: Not Answered Alcohol Use Standard Drinks/Week Comments Not Currently [...] 03/29/2023 How often do you attend chur or amish services? Never 03/29/2023 Do you belong to any clubs o r organizations such as taoism groups, unions, fraternal or athletic groups, or [...] Date Recorded Patient Health Questionnaire-2 Score 0 11/22/2024 [facility] Occupat ional Health - Occupational [...] place to sleep or slept in a residential (including now)? No 03/29/2023 Sex and Gender Information Value Date Recorded Sex Assigned at Not on file Legal Sex Male 6:48 PM EDT Gender Identity Not on file Sexual Orientation Not on file Last Filed Vital Signs Vital Sign Reading Time Taken Comments Blood Pressure 112/72 11/22/2024 1:53 PM EDT Pulse 82 11/22/2024 1:53 PM EDT Temperature - - Respiratory Rate 18 11/22/2023 1:06 PM EDT Oxygen Saturation 94% 11/22/2024 1:53 PM EDT Inhaled Oxygen Concentration - - Weight 86.2 kg (190 lb) 11/22/2024 1:53 PM EDT Height 175.3 cm (5' 9 ) 11/22/2024 1:53 PM EDT Body Mass Index 28.06 11/22/2024 1:53 PM EDT Plan of Treatment Upcoming Encounters Date Type Department Care Team (Late st Contact Info) Description 03/14/2025 1:00 PM EDT Office Visit [facility] [place] [facility] [address] [facility] [address] [place] [address] Cassidy Mcclure MD [address] [facility] 110 [place] [address] 05/27/2025 1:00 PM EST Office Visit [facility] [place] [facility] [address] [facility] 110 [place] [address] Cassidy Mcclure MD [address] [facility] [address] [place] [address] Health Maintenance Due Date Last Done Comments CT Colonography 1958 FIT 1958 FOBT 1960 Sigmoidoscopy 1960 Pneumococcal Vaccine: 65+ Ye ars (2 of 2 - PCV) 08/03/2014 08/03/2013 FIT-DNA 11/01/2021 11/01/2018, 11/01/2018 Influenza Vaccine (#1) 2025 , 04/27/2022, 04/25/2021, Additional history exists Medicare Annual Wellness (AWV) 09/10/2025 09/10/2024 , 11/22/2023 Colonoscopy 04/04/2030 04/04/2020, 01/30/2019 Colorectal Cancer Screening 04/04/2030 Procedures Procedure Name Priority Date/Time Associated Diagnosis Comments COLONOSCOPY Routine 04/04/2020 12:00 PM EDT LAB COLOGUARD COLON CANCER SCREEN Routine 11/01/2018 from Last 3 Months or Most Recently Relevant to Health Maintenance Results * Colonoscopy (04/04/2020 12:00 PM EDT) Anatomical Region Laterality Modality Endoscopy 04/04/2020 12:0 0 PM EDT Narrative 04/04/2020 12:00 PM EDT PERFORMED AT [facility] LOCATION:[id number] See Scanned Doc. Procedure Note CONVERSION, GENERIC - 11/24/2022 PERFORMED AT [facility] LOCATION:[id number] See Scanned Doc. us Cassidy Mcclure MD ENDOSCOPY PROCEDURE ORDERABLES F inal Result * Cologuard?? colon cancer screening (11/01/2018) [facility] COLOGUARD RESULT REPORTABLE Negative Not Applicable [facility] Comment: A negative result indicates a low likelihood that a colorectal cancer (CRC) or an advanced adenoma (adenomatous polyps with more advanced pre-malignant features) is present. The chance that a person with a negative Cologuard test has a colorectal cancer is less than 1 in 1500 (negative predictive value >99.9%) or has an advanced adenoma is less than 5.3% (negative predictive value 94.7%). These data are based on a prospective cross-sectional screening study of 10,000 individuals at average risk for colorectal cancer who were screened with both Cologuard and colonoscopy. (Zena Odell al, N Engl J Med 2014;370(14):1962-0353) COLOGUARD RE-SCREENING RECOMMENDATION: Periodic routine colorectal cancer screening is an important part of preventive healthcare for asymptomatic persons at average risk for colorectal cancer. Following a negative Cologuard result, the [place] Cancer Society and U.S. Multi-Society Task Force screening guidelines recommend a Cologuard re-screening interval of 3 years. References: [place] Cancer Society (ACS). Colorectal cancer prevention and early detection. [place], [place]: [place] [employer] Society; [updated 2015Nov 01]. https://www.cancer.org/cancer/cqfbh-zmchkt-zcmymr/nygxbhjdr-rtxpebrgp-lqehgwi/ac s-rec ommendations.html. Accessed March 10, 2018; Christopher DK, Tyler CR, Stephanie WalkerK, Colorectal Cancer Screening: Recommendations for Physicians and Patients from the U.S. Multi-Society Task Force on Colorectal Cancer Screening, Am J Gastroenterology 2017; 112:2642-0673. Test Type: Composite algorithmic analysis of stool DNA-biomarkers with hemoglobin immunoassay. Quantitative values of individual biomarkers are not reportable and are not associated with individual biomarker result reference ranges. Precautions and Limitations: Cologuard is intended for colorectal cancer screening of adults of either sex, 50 years or older, who are at typical average-risk for colorectal cancer. A negative Cologuard test result does not guarantee the absence of colorectal cancer or advanced adenoma (pre-cancer). Patients with a negative Cologuard test result should be advised to continue participating in a colorectal cancer screening program. Cologuard may produce a positive result, even though a colonoscopy may not find colorectal cancer or precancerous polyps. The performance of Cologuard has been established in a cross sectional study (i.e., single point in time). Performance has not been evaluated in adults who have been previously tested with Cologuard or in patients less than 50 years of age. Cologuard has been approved for use by the U.S. FDA. Cologuard performance data in a 10,000 patient pivotal study using colonoscopy as the reference method can be accessed at the following location: www.Abaxia.PerfectHitch/results. Additional description of the Cologuard test process, warnings and precautions can be found at www.cologuardtest.com. Rx Only. 11/01/2018 Cassidy Mcclure MD LAB MOLECULAR DIAGNOSTICS ORDERA ROJAS Final Result [facility] from Last 3 Months or Most Recently Relevant to Health Maintenance Insurance SB MEDICARE ADVANTAGE Care Teams Contract Forester Relationship Specialty Start Date End Date Cassidy Mcclure MD [address] [facility] 110 [place] [address] PCP - Sb GALLARDO 07/11/21 Cassidy Mcclure MD [address] [facility] 110 [place] [address] PCP - General Family Medicine 12/27/22 Cathy Parr LPN [address] [facility] 110 [place] [address] 09/28/24
--- OUTSIDE RECORDS SUMMARY | 2025-02-11 12:12 | XMS_ITS | Encounter Summary ---
Author Organization [facility] Address [address] [place] [address] Care Team Providers Care Field Services Director Name Role Phone Cassidy Mcclure MD Unavailable Cassidy Mcclure MD Primary Care Provider [phone] Cathy Parr LPN Unavailable Reason for Visit * Reason Comments Med Refill Encounter Details Date Type Department Care Team ([facility] Contact Info) Description 01/30/2025 Refill [facility] [place] [facility] [address] [facility] 110 [place] [phone] Cassidy Mcclure MD 112 [facility] 110 [place] [address] Hypertriglyceridemia Social History Tobacco Use Types Packs/Day Years [...] often do you attend chur ch or buddhist services? Never 03/29/2023 Do you belong to any clubs o r organizations such as buddhism groups, unions, fraternal or athletic groups, or [...] Recorded Patient Health Questionnaire-2 Score 0 11/22/2024 [facility] Occupat ional Health - Occupational [...] place to sleep or slept in a intermediate (including now)? No 03/29/2023 Sex and Gender [...] Office Visit [facility] [place] [facility] [address] [facility] [address] [place] [address] Cassidy Mcclure MD [address] [facility] 110 [place] [address] 05/27/2025 1:00 PM EST [facility] [facility] [address] [facility] 110 [place] [phone] Cassidy Mcclure MD [address] [facility] [address] [place] [address] documented as of this encounter Visit Diagnoses Diagnosis Hypertriglyceridemia Pure hyperglyceridemia documented in this encounter Additional Health Concerns Assessment Noted Time PHQ-9 Depression Total Score: 0 11/22/19 24 12:00 PM EDT documented as of this encounter Care Teams Field Services Director Relationship Specialty Start Date End Date Cassidy Mcclure MD [address] [facility] 110 [place] [address] PCP - Sb GALLARDO 07/11/21 Cassidy Mcclure MD [address] [facility] 110 [place] [address] PCP - General Family Medicine 12/27/22 Cathy Parr LPN [address] [address] 09/28/24 documented as of this encounter
--- OUTSIDE RECORDS SUMMARY | 2025-02-11 12:12 | XMS_ITS | Encounter Summary ---
Author Organization [facility] Address [address] [facility] [place] [address] Care Team Providers Care Medical Science Liaison Name Role Phone Cassidy Mcclure MD Unavailable Cassidy Mcclure MD Primary Care Provider [phone] Jennifer Bermeo RN Unavailable [phone] Cathy Parr LPN Unavailable Encounter Details Date Type Department Care Team ([facility] st Contact Info) Description 05/10/2023 Abstract [facility] [place] [facility] 112 [facility] 110 [place] [id number] Cassidy Mcclure MD 112 [facility] 110 [place] [address] Social History Tobacco Use Types Packs/Day Years [...] often do you attend chur ch or methodist services? Never 03/29/2023 Do you belong to any clubs o r organizations such as bahai groups, unions, fraternal or athletic groups, or [...] medical care, and heating? Somewhat hard 03/29/2023 [facility] - [...] place to sleep or slept in a detention (including now)? No 03/29/2023 Sex and Gender Information Value Date Recorded Sex Assigned at Not on file Legal Sex Male 6:48 PM EDT Gender Identity Not on file Sexual Orientation Not on file documented as of this encounter Plan of Treatment Upcoming Encounters Date Type Department Care Team (Late st Contact Info) Description 03/14/2025 1:00 PM EDT [facility] [address] JOSE ALFREDO [address] [place] [address] Cassidy Mcclure MD [address] Jose Alfredo [address] [place] [address] 05/27/2025 1:00 PM EST Office Visit [facility] [place] [facility] [address] [place]SE ALFR[address] [place] [address] Cassidy Mcclure MD [address] Jose Alfred[address] [place] [address] documented as of this encounter Visit Diagnoses Not on filedocumented in this encounter Care Teams Medical Science Liaison Relationship Specialty Start Date End Date Cassidy Mcclure MD [address] Jose Alfred[address] [place] [address] PCP - Sb GALLARDO 07/11/21 Cassidy Mcclure MD [address] Jose Alfred[address] [place] [address] PCP - General Family Medicine 12/27/22 Jennifer Bermeo, MARILYN [address] [place] [address] Clinical Advocate Family Medicine 08/17/24 09/28/24 Cathy Parr LPN [address] [facility] 110 [place] [address] 09/28/24 documented as of this encounter
--- OUTSIDE RECORDS SUMMARY | 2025-02-11 12:12 | XMS_ITS | Encounter Summary ---
Author Organization [facility] Address [address] [place] [address] Care Team Providers Care Equity Director Name Role Phone Cassidy Mcclure MD Unavailable Cassidy Mcclure MD Primary Care Provider [phone] Jennifer Bermeo RN Unavailable [phone] Cathy Parr LPN Unavailable Encounter Details Date Type Department Care Team (Late st Contact Info) Description 07/20/2023 Clinisync Result Encounter [facility] External Department Unsolicited [...] often do you attend chur ch or muslim services? Never 03/29/2023 Do you belong to any clubs o r organizations such as yazidi groups, unions, fraternal or athletic groups, or [...] medical care, and heating? Somewhat hard 03/29/2023 [facility] - [...] place to sleep or slept in a penitentiary (including now)? No 03/29/2023 Sex and Gender [...] [address]SE ALFR[address] [place] [phone] Cassidy Mcclure MD [address] Jose Alfred[address] [place] [address] 05/27/2025 1:00 PM EST Office Visit [facility] [place] [facility] [address] JOSE ALFRED[address] [place] [address] Cassidy Mcclure MD [address] Jose Alfredo [address] [place] [address] documented as of this encounter Procedures Procedure Name Priority Date/Time Associated Diagnosis Comments CT CHEST W IV CONTRAST 07/20/2023 10:43 AM EST documented in this encounter Results * CT chest w IV contrast (07/20/2023 10:43 AM EST) Anatomical Region Laterality Modality Body, Chest Computed Tomogra phy 07/20/2023 10:4 3 AM EST Narrative 07/21/2023 11:10 AM EST * * *Final Report* * * DATE OF EXAM: Jul 20 2023 10:43AM [facility] 0539 - CT CHEST W IVCON [...] Dose-length product (DLP) for this visit = 254 mGy*cm CT Dose Reduction Employed: Automated exposure control (AEC) Comparison: CT chest 01/13/2023 RESULT: Limitations: None. Lines, tubes, and devices: None. Lung parenchyma , airways, and pleural space: Left upper and lower lobe perihilar opacities are again appreciated, unchanged, likely on the basis of prior radiation therapy. No new consolidative process. Trace left pleural effusion, stable. The trachea and major airways appear patent. Mild centrilobular emphysematous changes are again identified. Scattered calcified granulomata are again noted. Previously identified punctate, noncalcified left apical nodule is no longer appreciated. No suspicious enlarging nodule is appreciated. Lower neck, lymph nodes, and mediastinum: The visualized thyroid gland is stable. No substantial supraclavicular, axillary, or mediastinal adenopathy is appreciated. Soft tissue prominence at the right hilum, unchanged. Soft tissue prominence at the left hilum contiguous with left perihilar opacities, stable. Heart, pericardium, and thoracic vessels: The thoracic aorta is normal in caliber. Coronary artery calcification is noted. No substantial pericardial effusion. Bones/Soft Tissues: Degenerative change within the thoracic spine is again appreciated. No osseous destructive process is identified. Upper Abdomen: Limited images through the upper abdomen are stable. Bacon Skin Lifter (topogram) images: No additional findings. IMPRESSION: 1. Left perihilar consolidative opacities, stable from prior examination of 01/13/2023. 2. Previously described punctate, less than 3 mm left upper lobe nodule is no longer appreciated. Transcribe Date/Time: Jul 20 2023 3:14P Dictated by: MARÍA ESCOBEDO MD This examination was interpreted and the report reviewed and electronically signed by: MARÍA ESCOBEDO MD on Jul 21 2023 11:08AM EST Thank you for allowing us to participate in the care of your patient. Should there be any questions regarding this interpretation, please call [phone]. If you are unable to reach us at the number above, please feel free to contact [facility] at [phone]. [id number]^[email or web address] Procedure Note Radiology, Radiologist, - 07/21/2023 * * *Final Report* * * DATE OF EXAM: Jul 20 2023 10:43AM [facility] 0539 - CT CHEST W IVCON [...] Dose-length product (DLP) for this visit = 254 mGy*cm CT Dose Reduction Employed: Automated exposure control (AEC) Comparison: CT chest 01/13/2023 RESULT: Limitations: None. Lines, tubes, and devices: None. Lung parenchyma , airways, and pleural space: Left upper and lower lobe perihilar opacities are again appreciated, unchanged, likely on the basis of prior radiation therapy. No new consolidative process. Trace left pleural effusion, stable. The trachea and major airways appear patent. Mild centrilobular emphysematous changes are again identified. Scattered calcified granulomata are again noted. Previously identified punctate, noncalcified left apical nodule is no longer appreciated. No suspicious enlarging nodule is appreciated. Lower neck, lymph nodes, and mediastinum: The visualized thyroid gland is stable. No substantial supraclavicular, axillary, or mediastinal adenopathy is appreciated. Soft tissue prominence at the right hilum, unchanged. Soft tissue prominence at the left hilum contiguous with left perihilar opacities, stable. Heart, pericardium, and thoracic vessels: The thoracic aorta is normal in caliber. Coronary artery calcification is noted. No substantial pericardial effusion. Bones/Soft Tissues: Degenerative change within the thoracic spine is again appreciated. No osseous destructive process is identified. Upper Abdomen: Limited images through the upper abdomen are stable. Bacon Skin Lifter (topogram) images: No additional findings. IMPRESSION: 1. Left perihilar consolidative opacities, stable from prior examination of 01/13/2023. 2. Previously described punctate, less than 3 mm left upper lobe nodule is no longer appreciated. Transcribe Date/Time: Jul 20 2023 3:14P Dictated by: MARÍA ESCOBEDO MD This examination was interpreted and the report reviewed and electronically signed by: MARÍA ESCOBEDO MD on Jul 21 2023 11:08AM EST Thank you for allowing us to participate in the care of your patient. Should there be any questions regarding this interpretation, please call [phone]. If you are unable to reach us at the number above, please feel free to contact [facility] at [phone]. [id number]^[email or web address]^ACN us Generic External Data Provider IMG CT PROCEDURES Final Result documented in this encounter Visit Diagnoses Not on filedocumented in this encounter Care Teams Equity Director Relationship Specialty Start Date End Date Cassidy Mcclure MD [address] [address] PCP - Sb GALLARDO 07/11/21 Cassidy Mcclure MD [address] [facility] 110 [place] [address] PCP - General Family Medicine 12/27/22 Jennifer Bermeo, MARILYN [address] [place] [address] Clinical Advocate Family Medicine 08/17/24 09/28/24 Cathy Parr LPN [address] [facility] 110 [place] [address] 09/28/24 documented as of this encounter
--- OUTSIDE RECORDS SUMMARY | 2025-02-11 12:12 | XMS_ITS | Encounter Summary ---
Author Organization [facility] Address [address] [facility] [place] [address] Care Team Providers Care Scientific Informatics Project Leader Name Role Phone Cassidy Mcclure MD Unavailable Cassidy Mcclure MD Primary Care Provider [phone] Jennifer Bermeo RN Unavailable [phone] Cathy Parr LPN Unavailable Encounter Details Date Type Department Care Team ([facility] st Contact Info) Description 06/09/2023 Abstract [facility] [place] [facility] 112 [facility] 110 [place] [phone] Cassidy Mcclure MD 112 [facility] 110 [place] [address] Social History Tobacco Use Types Packs/Day Years [...] often do you attend chur ch or taoism services? Never 03/29/2023 Do you belong to any clubs o r organizations such as evangelical groups, unions, fraternal or athletic groups, or [...] and heating? Somewhat hard 03/29/2023 [facility] - [...] place to sleep or slept in a senior care (including now)? No 03/29/2023 Sex and Gender Information Value Date Recorded Sex Assigned at Not on file Legal Sex Male 6:48 PM EDT Gender Identity Not on file Sexual Orientation Not on file documented as of this encounter Plan of Treatment Upcoming Encounters Date Type Department Care Team (Late st Contact Info) Description 03/14/2025 1:00 PM EDT [facility] [address] JOSE ALFREDO [address] [place] [address] Cassidy Mcclure MD [address] Jose Alfredo [address] [place] [address] 05/27/2025 1:00 PM EST Office Visit [facility] [place] [facility] [address] JO[address]FR[address] [place] [address] Cassidy Mcclure MD [address] Alfred[address] [place] [address] documented as of this encounter Visit Diagnoses Not on filedocumented in this encounter Care Teams Scientific Informatics Project Leader Relationship Specialty Start Date End Date Cassidy Mcclure MD [address] Alfred[address] [place] [address] PCP - Sb GALLARDO 07/11/21 Cassidy Mcclure MD [address] [place] [address] PCP - General Family Medicine 12/27/22 Jennifer Bermeo, MARILYN [address] [place] [address] Clinical Advocate Family Medicine 08/17/24 09/28/24 Cathy Parr LPN [address] [facility] 110 [place] [address] 09/28/24 documented as of this encounter
--- NOTE | 2025-02-11 12:27 | CT_ITS ---
The [address] [address] Patient Name: DAGO CRESPO MRN: [id number] date: 1960 Sex: M Assigned Patient Location: ER Current Patient Location: Accession/Order Number: [id number] Exam Date: 02/11/2025 14:23 Report Date: 02/11/2025 14:29 At the request of: CORY DUMAS Procedure: CT angio chest CT ANGIOGRAM OF THE CHEST, PULMONARY EMBOLISM PROTOCOL: CLINICAL INFORMATION: Hemoptysis with cough for 3 weeks. History of lung cancer. COMPARISON: CT chest 07/20/2023 TECHNIQUE: Following intravenous injection of contrast CT scans of the chest were obtained using pulmonary embolism protocol. Coronal and sagittal reconstructed images, as well as volume rendered CT pulmonary angiographic images were also submitted.The CT exam was performed using one or more of the following dose reduction techniques: Automated exposure control, adjustment of the MA and/or Kv according to patient size, or use of the iterative reconstruction technique. FINDINGS: Pulmonary Vasculature: Contrast bolus is adequate for evaluation of pulmonary embolism. Pulmonary trunk appears nondilated. No filling defects are identified to suggest pulmonary embolism. Mediastinum : Thoracic aorta is normal in caliber. No pericardial effusion. No lymphadenopathy. The esophagus is grossly unremarkable. Lungs: Masslike consolidation involving the left upper lobe extending into the left hilar region consistent with the history of lung cancer. Findings have evolved since the prior CT study now measuring approximately 5.6 x 4.6 x 5.7 cm. Trace left-sided pleural effusion. No pneumothorax. Right lung appears clear. Emphysema. Upper abdomen: No acute findings Soft tissue/bones: Soft tissues surrounding the chest wall demonstrate no acute findings. Osseous structures demonstrate degenerative change. CT/CT angio chest IMPRESSION: NO EVIDENCE OF ACUTE PULMONARY EMBOLISM. MASSLIKE CONSOLIDATION INVOLVING THE LEFT UPPER LOBE EXTENDING INTO THE LEFT HILAR REGION MEASURING 5.6 X 4.6 X 5.7 CM. FINDINGS HAVE EVOLVED SINCE THE PRIOR STUDY FROM 07/20/2023. TUMOR RECURRENCE CANNOT BE EXCLUDED. TRACE LEFT PLEURAL EFFUSION. Impression dictated by: Anoop Garcia Jr., D.O. 02/11/2025 2:29 PM Dictation Location: [place] [address] Electronically authenticated by: [id number] Y Date: 02/11/2025 14:29
--- NOTE | 2025-02-11 12:27 | XR_ITS ---
The [address] [address] Patient Name: DAGO CRESPO MRN: [id number] date: 1960 Sex: M Assigned Patient Location: ER Current Patient Location: ER Accession/Order Number: [id number] Exam Date: 02/11/2025 13:30 Report Date: 02/11/2025 13:31 At the request of: CORY DUMAS Procedure: XR chest 1V Single view chest: CLINICAL HISTORY: cough. History of lung cancer. COMPARISON: CT chest 07/20/2023. FINDINGS: The heart is normal in size. Presumed stable posttreatment changes involving the left lung. No new consolidation pneumothorax pleural effusion or free air. XR/XR chest 1V IMPRESSION: NO ACUTE FINDINGS. Impression dictated by: Rox Webb Jr.OKristin 02/11/2025 1:31 PM Dictation Location: [place] [address] Electronically authenticated by: [id number] Y Date: 02/11/2025 13:31
--- NOTE | 2025-02-11 12:58 | ED.URI1 ---
HPI - URI/Sore Throat General Chief Complaint: Upper Respiratory Infection Stated Complaint: urti complaints Time Seen by Provider: 02/11/25 12:10 Source: patient History of Present Illness HPI Narrative: Patient presents to the ED with a complaint of a cough. He states he has had a cough for several weeks at this time. Today he started coughing up blood. He does not have any chest pressure or shortness of breath. 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 He received treatment approximately 2 years ago with chemotherapy and radiation. He states he also has a mild headache. He has had a lot of nasal discharge. Mild sore throat. He has been afebrile at home. He denies any abdominal pain nausea vomiting or diarrhea but he has had decreased appetite according to his family member he has lost approximately 25 to 30 pounds in the last month because he just feels like he does not want to eat. He reports his bowel movements have been normal although decreased due to his intake. He has been urinating normally as well. He does not feel lightheaded or dizzy. He has no neurological deficit. Patient does have a history of COPD he is supposed to be on inhalers but his family member states he does not take them all the time. He has a history of smoking but not currently. He is not taking any medication for his symptoms which he presents for currently. MD elicited complaint: Reports cough, sore throat, rhinorrhea and nasal congestion; Denies fever Pertinent past history: Reports COPD Onset (ago): day(s) Consistency: Reports constant Severity: moderate Description of mucous: Reports bloody Able to tolerate fluids by mouth: Yes Exacerbating factors: Reports nothing Associated symptoms: Reports chills, myalgias, headache and nasal congestion; Denies fever, voice changes, chest pain, shortness of breath or abdominal pain Treatments prior to arrival: Reports none Related Data Home Medications ?Medication ?Instructions ?Recorded ?Confirmed atorvastatin 80 mg tablet 80 mg PO DAILY 02/11/25 02/11/25 celecoxib 200 mg capsule 200 mg PO DAILY 02/11/25 02/11/25 folic acid 1 mg tablet 1 mg PO DAILY 02/11/25 02/11/25 gabapentin 400 mg capsule 800 mg PO Q12H 02/11/25 02/11/25 levothyroxine 100 mcg tablet 100 mcg PO DAILY 02/11/25 02/11/25 lisinopril 10 mg tablet 10 mg PO DAILY 02/11/25 02/11/25 omeprazole 40 mg capsule,delayed 40 mg PO DAILY 02/11/25 02/11/25 release ropinirole 0.5 mg tablet 0.5 mg PO QID 02/11/25 02/11/25 topiramate 50 mg tablet 50 mg PO Q12H 02/11/25 02/11/25 Previous Rx's ?Medication ?Instructions ?Recorded amoxicillin 875 mg-potassium 1 tab PO BID #20 tabs 02/11/25 clavulanate 125 mg tablet ondansetron HCl 4 mg tablet 4 mg PO Q6H PRN nausea and 02/11/25 vomiting #10 tabs Allergies Allergy/AdvReac Type Severity Reaction Status Date / Time No Known Drug Allergies Allergy Verified 02/11/25 12:10 PFSH PFSH Social History Little interest or pleasure in doing things: not at all Feeling down, depressed, or hopeless: not at all Exam Constitutional Vital Signs, click to edit/add: Last Vital Signs Temp 98.1 F 02/11/25 12:14 Pulse 92 H 02/11/25 16:40 Resp 15 02/11/25 16:40 BP 128/70 02/11/25 16:31 Pulse Ox 100 02/11/25 16:40 O2 Del Method Room Air 02/11/25 12:14 Documenting provider has reviewed patient's vital signs: yes Common normals: no apparent distress, average body habitus and oriented x3 General appearance: cooperative, comfortable, well kempt and well developed Orientation/consciousness: Yes awake, Yes oriented to person, Yes oriented to place and Yes oriented to time [facility] Common normals: normocephalic and head/scalp atraumatic Head and scalp: normal to inspection Face and sinus: normal facial exam and sinuses nontender Nose: no nasal discharge; no nasal discharge External ear: external ears normal Tympanic membrane: TMs normal bilaterally Mouth: oral and palatal mucosa normal Throat: posterior oropharynx normal, tonsils normal and uvula midline Neck & C-Spine Common normals: full ROM and no lymphadenopathy Respiratory Common normals: normal respiratory effort, no retractions, no use of accessory muscles and clear to auscultation bilaterally Effort & inspection: able to speak in complete sentences Cardio Common normals: regular rate, regular rhythm, S1 normal heart sound, S2 normal heart sound, no murmurs and peripheral pulses 2+ throughout GI Common normals: Normal to inspection, nondistended, normoactive bowel sounds present, soft to palpation and non-tender Neuro Common normals: oriented x3 Sensorium/orientation: awake and alert Speech: speech normal Gait (neuro): normal gait Psych Activity/motor behavior: appropriate eye contact Speech: normal speech Thought process: normal thought process Course Reevaluation(s) Time: 13:20 Reevaluation #2: Patient. He states that Zofran did help him quite a bit he is going to try p.o. He was given dose of IV antibiotics. He has not been sick. CT does suggest infiltrate on the left side. Possible underlying tumor?. I discussed this with the patient. I discussed treating him outpatient and he does have a follow-up with his doctor in 4 days. His is not present at this time when she returns I will have a conversation with both of them regarding follow-up and management. Time: 14:02 Reevaluation #3: Patient is received all his IV fluid and antibiotics. His vital signs remained stable through his visit. I will treat with outpatient antibiotics Ceftin and Zithromax. He follows up with his PCP in 4 days. Not hypoxic. Also, prescription for Zofran to help his nausea and hopefully his appetite. Vital Signs Vital signs: Vital Signs Temperature 98.1 F 02/11/25 12:14 Pulse Rate 69 02/11/25 12:14 Respiratory Rate 20 02/11/25 12:14 Blood Pressure 142/72 H 02/11/25 12:14 Pulse Oximetry 96 02/11/25 12:14 Oxygen Delivery Method Room Air 02/11/25 12:14 Temperature 98.1 F 02/11/25 12:14 Pulse Rate 92 H 02/11/25 16:40 Respiratory Rate 15 02/11/25 16:40 Blood Pressure 128/70 02/11/25 16:31 Pulse Oximetry 100 02/11/25 16:40 Oxygen Delivery Method Room Air 02/11/25 12:14 MDM - URI/Sore Throat MDM Narrative Medical decision making narrative: Patient presents to the ED with a complaint of a cough. He states he has had a cough for several weeks at this time. Today he started coughing up blood. He does not have any chest pressure or shortness of breath. 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 He received treatment approximately 2 years ago with chemotherapy and radiation. He states he also has a mild headache. He has had a lot of nasal discharge. Mild sore throat. He has been afebrile at home. He denies any abdominal pain nausea vomiting or diarrhea but he has had decreased appetite according to his family member he has lost approximately 25 to 30 pounds in the last month because he just feels like he does not want to eat. He reports his bowel movements have been normal although decreased due to his intake. He has been urinating normally as well. He does not feel lightheaded or dizzy. He has no neurological deficit. Patient does have a history of COPD he is supposed to be on inhalers but his family member states he does not take them all the time. He has a history of smoking but not currently. He is not taking any medication for his symptoms which he presents for currently. Patient is alert and oriented resting comfortably in his room. He is pleasant and interactive. Patient has normal body habitus. HEENT exam is unremarkable other than a small amount of cerumen in the left canal. I still unable to visualize his TM. Pharynx is not erythematous no exudate. No lymphadenopathy normal neck range of motion no meningeal symptoms. Patient's heart sounds normal regular rhythm and rate. Lung sounds are clear no adventitious sounds. Abdomen is soft and nontender. Patient does not appear ill or toxic. He is mentating at baseline. He is appropriately interactive with no neurological deficit. Patient's x-ray was concerning for infiltrate possible underlying mass. I did discuss with the patient this possibly could return. He is seeing his oncologist/technical support agent in [address] him on antibiotics at this time based on his symptoms and his workup however he is aware that this may be superimposed on another process. He does not have a pulmonary embolism on his CT. Patient is not hypoxic he is not septic. He was able to tolerate p.o. prior to his discharge. Patient was given IV antibiotics and will continued Antibiotics at home. He is encouraged to return at anytime with any worsening or concerning symptoms. Differential Diagnosis Differential diagnosis: Likely upper respiratory infection, sinusitis, viral infection, bronchitis, influenza and other (Pulmonary embolism, pneumonia, recurrence of his lung tumor, pharyngitis,) Medical Records Attestation: I reviewed the patient's medical records. Lab Data Attestation: I reviewed the patient's lab results. Labs: Lab Results 02/11/25 02/11/25 02/11/25 Range/Units 12:45 12:50 13:12 WBC 5.1 (4.0-11.0) 10^3/uL RBC 3.78 L (4.70-6.10) 10^6/uL Hgb 11.1 L (14.0-18.0) g/dL Hct 33.7 L (42.0-54.0) % MCV 89.2 (80.0-94.0) fL MCH 29.4 (25.9-34.0) pg MCHC 32.9 (29.9-35.2) g/dL RDW 12.9 (11.0-15.0) % Plt Count 298 (150-450) 10^3/uL MPV 9.4 L (9.5-13.5) fL Seg Neuts % (Manual) 65.0 (43.0-75.0) Band Neutrophils % 1.0 (0-5) % Lymphocytes % (Manual) 23.0 (20.5-60.0) % Monocytes % (Manual) 10.0 (1.7-12.0) % Eosinophils % (Manual) 1.0 (0.9-7.0) % Basophils % (Manual) 0.0 L (0.2-2.0) % Neutrophils # (Manual) 3.31 (1.4-6.5) 10^3/uL Band Neutrophils # 0.1 (0.0-0.3) 10^3/uL Lymphocytes # (Manual) 1.17 L (1.20-3.80) 10^3/uL Monocytes # (Manual) 0.51 (0.30-0.80) 10^3/uL Eosinophils # (Manual) 0.05 (0.00-0.70) 10^3/uL Basophils # (Manual) 0.00 (0.00-0.10) 10^3/uL Sodium 138 (136-145) mmol/L Potassium 3.8 (3.5-5.1) mmol/L Chloride 105 (98-107) mmol/L Carbon Dioxide 28.5 (21.0-32.0) mmol/L Anion Gap 8.3 BUN 11.0 (7.0-18.0) mg/dL Creatinine 0.91 (0.70-1.30) mg/dL Est GFR ( Amer) >60 (>=60 mL/min/1.73m^2) Est GFR (Non-Af Amer) >60 (>=60 mL/min/1.73m^2) BUN/Creatinine Ratio 12.1 Glucose 94 (74-106) mg/dL Lactate 0.6 (0.4-2.0) mmol/L Calcium 8.9 (8.5-10.1) mg/dL Total Bilirubin 0.6 (0.2-1.0) mg/dL AST 21 (15-37) U/L ALT 21 (16-63) U/L Alkaline Phosphatase 94 (46-116) U/L Troponin I High Sens 6.4 (4.0-76.1) pg/mL NT-Pro-B Natriuret Pep 131.0 (<=900.0) pg/mL Total Protein 7.4 (6.4-8.2) g/dL Albumin 2.7 L (3.4-5.0) g/dL Globulin 4.7 g/dL Albumin/Globulin Ratio 0.6 Lipase 41.0 (16.0-77.0) U/L Urine Color (YELLOW) Urine Clarity (CLEAR) Urine pH (5.0-9.0) Ur Specific [place] (1.005-1.025) Urine Protein (NEG/TRACE) mg/dL Urine Glucose (UA) (NEGATIVE) mg/dL Urine Ketones (NEGATIVE) mg/dL Urine Occult Blood (NEGATIVE) Urine Nitrite (NEGATIVE) Urine Bilirubin (NEGATIVE) Urine Urobilinogen (0.2-1.0) EU/dL Ur Leukocyte Esterase (NEGATIVE) Urine RBC (0-2) #/HPF Urine WBC (NONE SEEN) #/HPF Ur Squamous Epith Cells (NONE/RARE) #/LPF Urine Crystals (None Seen) #/HPF Urine Bacteria (NONE SEEN) #/HPF Urine Casts (NONE SEEN) #/LPF Urine Mucus (NONE SEEN) Ur Culture Indicated? Influenza Type A Ag Negative Influenza Type B Ag Negative SARS-CoV-2 Ag (CV2AG) Negative (NEGATIVE) 02/11/25 Range/Units 14:50 WBC (4.0-11.0) 10^3/uL RBC (4.70-6.10) 10^6/uL Hgb (14.0-18.0) g/dL Hct (42.0-54.0) % MCV (80.0-94.0) fL MCH (25.9-34.0) pg MCHC (29.9-35.2) g/dL RDW (11.0-15.0) % Plt Count (150-450) 10^3/uL MPV (9.5-13.5) fL Seg Neuts % (Manual) (43.0-75.0) Band Neutrophils % (0-5) % Lymphocytes % (Manual) (20.5-60.0) % Monocytes % (Manual) (1.7-12.0) % Eosinophils % (Manual) (0.9-7.0) % Basophils % (Manual) (0.2-2.0) % Neutrophils # (Manual) (1.4-6.5) 10^3/uL Band Neutrophils # (0.0-0.3) 10^3/uL Lymphocytes # (Manual) (1.20-3.80) 10^3/uL Monocytes # (Manual) (0.30-0.80) 10^3/uL Eosinophils # (Manual) (0.00-0.70) 10^3/uL Basophils # (Manual) (0.00-0.10) 10^3/uL Sodium (136-145) mmol/L Potassium (3.5-5.1) mmol/L Chloride (98-107) mmol/L Carbon Dioxide (21.0-32.0) mmol/L Anion Gap BUN (7.0-18.0) mg/dL Creatinine (0.70-1.30) mg/dL Est GFR ( Amer) (>=60 mL/min/1.73m^2) Est GFR (Non-Af Amer) (>=60 mL/min/1.73m^2) BUN/Creatinine Ratio Glucose (74-106) mg/dL Lactate (0.4-2.0) mmol/L Calcium (8.5-10.1) mg/dL Total Bilirubin (0.2-1.0) mg/dL AST (15-37) U/L ALT (16-63) U/L Alkaline Phosphatase (46-116) U/L Troponin I High Sens (4.0-76.1) pg/mL NT-Pro-B Natriuret Pep (<=900.0) pg/mL Total Protein (6.4-8.2) g/dL Albumin (3.4-5.0) g/dL Globulin g/dL Albumin/Globulin Ratio Lipase (16.0-77.0) U/L Urine Color Lt. yellow (YELLOW) Urine Clarity Clear (CLEAR) Urine pH 7.0 (5.0-9.0) Ur Specific [place] 1.010 (1.005-1.025) Urine Protein Negative (NEG/TRACE) mg/dL Urine Glucose (UA) Negative (NEGATIVE) mg/dL Urine Ketones Negative (NEGATIVE) mg/dL Urine Occult Blood Negative (NEGATIVE) Urine Nitrite Negative (NEGATIVE) Urine Bilirubin Negative (NEGATIVE) Urine Urobilinogen 1.0 (0.2-1.0) EU/dL Ur Leukocyte Esterase Negative (NEGATIVE) Urine RBC 0-2 (0-2) #/HPF Urine WBC None seen (NONE SEEN) #/HPF Ur Squamous Epith Cells Rare (NONE/RARE) #/LPF Urine Crystals None seen (None Seen) #/HPF Urine Bacteria Trace A (NONE SEEN) #/HPF Urine Casts None seen (NONE SEEN) #/LPF Urine Mucus None seen (NONE SEEN) Ur Culture Indicated? No Influenza Type A Ag Influenza Type B Ag SARS-CoV-2 Ag (CV2AG) (NEGATIVE) Imaging Data CT scan - chest: Radiologist's impression: ITS Impressions Chest CTA 02/11/25 12:27 IMPRESSION: NO EVIDENCE OF ACUTE PULMONARY EMBOLISM. MASSLIKE CONSOLIDATION INVOLVING THE LEFT UPPER LOBE EXTENDING INTO THE LEFT HILAR REGION MEASURING 5.6 X 4.6 X 5.7 CM. FINDINGS HAVE EVOLVED SINCE THE PRIOR STUDY FROM 07/20/2023. TUMOR RECURRENCE CANNOT BE EXCLUDED. TRACE LEFT PLEURAL EFFUSION. Impression dictated by: Anoop Garcia Jr., D.O. 02/11/2025 2:29 PM Dictation Location: [place] [address] Electronically authenticated by: [id number] Y Date: 02/11/2025 14:29 Chest X-Ray 02/11/25 12:27 IMPRESSION: NO ACUTE FINDINGS. Impression dictated by: Anoop Garcia Jr., D.O. 02/11/2025 1:31 PM Dictation Location: [place] [address] Electronically authenticated by: [id number] Y Date: 02/11/2025 13:31 ECG Data Attestation: ?I have reviewed the pertinent ECG results. ECG interpretation date: 02/11/25 ECG interpretation time: 12:21 Prior ECG tracings: not available for review Interpretation: Heart rate of 63, AL interval 174, QRS of 94, QT/QTc of 388/395, patient has no ST depression or elevation. He has nonspecific T wave abnormality most notably in I. No previous for comparison. No signs of STEMI. Discharge Plan Discharge Chief Complaint: Upper Respiratory Infection Clinical Impression: Pneumonia, Decrease in appetite Patient Disposition: Home, Self-Care Time of Disposition Decision: 15:20 Condition: Good Prescriptions / Home Meds: New amoxicillin-pot clavulanate 875-125 mg tablet 1 tab PO BID Qty: 20 0RF ondansetron HCl 4 mg tablet 4 mg PO Q6H PRN (Reason: nausea and vomiting) Qty: 10 0RF No Action atorvastatin 80 mg tablet 80 mg PO DAILY celecoxib 200 mg capsule 200 mg PO DAILY folic acid 1 mg tablet 1 mg PO DAILY gabapentin 400 mg capsule 800 mg PO Q12H levothyroxine 100 mcg tablet 100 mcg PO DAILY lisinopril 10 mg tablet 10 mg PO DAILY omeprazole 40 mg capsule,delayed release(DR/EC) 40 mg PO DAILY ropinirole 0.5 mg tablet 0.5 mg PO QID topiramate 50 mg tablet 50 mg PO Q12H Print Language: Lao Instructions: Community Acquired Pneumonia (ED) Referrals: JULIAN ROWLEY [Primary Care Provider, Family Practice] - 1 week Referral Note: This week as discussed and as scheduled
[2025-02-11 13:20] LABS: Hematocrit 33.7 % (42.0-54.0); Hemoglobin 11.1 g/dL (14.0-18.0); Mean Corpuscular HGB Conc 32.9 g/dL (29.9-35.2); Mean Corpuscular Hemoglobin 29.4 pg (25.9-34.0); Mean Corpuscular Volume 89.2 fL (80.0-94.0); Platelet Count 298 10^3/uL (150-450); Red Blood Count 3.78 10^6/uL (4.70-6.10); White Blood Count 5.1 10^3/uL (4.0-11.0)
[2025-02-11] MEDS: 0.9 % SODIUM CHLORIDE 1,000 ML 999 ML IV (13:22)
[2025-02-11 13:32] LABS: SARS-CoV-2 Ag NEGATIVE (NEGATIVE)
[2025-02-11 13:37] LABS: Alanine Aminotransferase 21 U/L (16-63); Albumin Globulin Ratio 0.6; Albumin Level 2.7 g/dL (3.4-5.0); Alkaline Phosphatase 94 U/L (46-116); Anion Gap 8.3; Aspartate Amino Transferase 21 U/L (15-37); Blood Urea Nitrogen 11.0 mg/dL (7.0-18.0); Calcium 8.9 mg/dL (8.5-10.1); Carbon Dioxide 28.5 mmol/L (21.0-32.0); Chloride 105 mmol/L (98-107); Estimated GFR (African America >60 (>=60 mL/min/1.73m^2); Estimated GFR (Non-African Ame >60 (>=60 mL/min/1.73m^2); Globulin 4.7 g/dL; Glucose 94 mg/dL (74-106); Lipase 41.0 U/L (16.0-77.0); Potassium 3.8 mmol/L (3.5-5.1); Sodium 138 mmol/L (136-145); Total Protein 7.4 g/dL (6.4-8.2)
[2025-02-11 13:39] LABS: Lactate/Lactic Acid 0.6 mmol/L (0.4-2.0)
[2025-02-11 13:43] LABS: NT Pro B Type Natriuretic Pept 131.0 pg/mL (<=900.0)
[2025-02-11 13:44] LABS: Band Neutrophils Absolute 0.1 10^3/uL (0.0-0.3); Basophils Abs Manual 0.00 10^3/uL (0.00-0.10); Basophils Percent Manual 0.0 % (0.2-2.0); Eosinophils Absolute Manual 0.05 10^3/uL (0.00-0.70); Eosinophils Percent Manual 1.0 % (0.9-7.0); Lymphocytes Absolute Manual 1.17 10^3/uL (1.20-3.80); Lymphocytes Percent Manual 23.0 % (20.5-60.0); Monocytes Absolute Manual 0.51 10^3/uL (0.30-0.80); Monocytes Percent Manual 10.0 % (1.7-12.0); Segmented Neut Absolute Manual 3.31 10^3/uL (1.4-6.5); Segmented Neutrophils % Manual 65.0 (43.0-75.0)
[2025-02-11 15:06] LABS: Glucose Urine UA NEGATIVE (NEGATIVE)
[2025-02-11 15:15] LABS: Cast Seen? NONE SEEN #/LPF (NONE SEEN); Crystals Seen? None Seen #/HPF (None Seen); Urine Culture Indicated NO
[2025-02-11] MEDS: AZITHROMYCIN 250 MG TABLET 500 MG PO (16:24)
== END 2025-02-11 18:01 | disposition home or self-care (01) ==
PROVIDERS: Physician Assistant; Emergency Provider Emergency Medicine; PCP Family Medicine
DX: J18.9 Pneumonia, unspecified organism (principal); Z85.118 Personal history of other malignant neoplasm of bronchus and lung; Z92.21 Personal history of antineoplastic chemotherapy; Z92.25 Personal history of immunosuppression therapy; Z92.3 Personal history of irradiation; Z87.891 Personal history of nicotine dependence; R63.0 Anorexia; J44.0 Chronic obstructive pulmonary disease with (acute) lower respiratory infection
CPT/HCPCS: 36415; 71045; 71275; 80053; 81001; 83605; 83690; 83880; 84484; 85007; 85027; 87040; 87804; 87811; 93005; 96365; 96375; 99285; J0696; J2405; Q9967